=== PATIENT | female | born 1970 | race Caucasian/White ===

== ENCOUNTER 2018-03-20 11:36 | Emergency (ER) | payer OTHER ==
[2018-03-20] MEDS: LIDOCAINE 1% MDV 20ML VIAL IM (12:30)
[2018-03-20] MEDS: PERCOCET 5MG/325MG TAB PO (12:31)
== END 2018-03-20 13:45 | disposition home or self-care (01) ==
LOC: M ED 11:36
DX: S52.542A Smith's fracture of left radius, initial encounter for closed fracture (principal); S52.612A Displaced fracture of left ulna styloid process, initial encounter for closed fracture; X58.XXXA Exposure to other specified factors, initial encounter; Y92.9 Unspecified place or not applicable; Y93.9 Activity, unspecified; Z79.899 Other long term (current) drug therapy; Z88.0 Allergy status to penicillin
CPT/HCPCS: 73100